=== PATIENT | female | born 1985 | race Caucasian/White ===

== ENCOUNTER 2022-07-06 06:00 | Inpatient (IN) | payer BC ==
[2022-07-06] MEDS ORDERED: hydrALAZINE 20 MG/ML VIAL SLOW IVP PRN ×2 (07:58→16:49)
[2022-07-06] MEDS ORDERED: Ondansetron PF 4 MG/2 ML Vial IVP PRN ×3 (07:58→16:49)
[2022-07-06] MEDS ORDERED: Lactated Ringer's 1,000 ML IV SCH (07:58)
[2022-07-06] MEDS ORDERED: Fentanyl 100 MCG/2 ML VIAL SLOW IVP PRN (07:58)
[2022-07-06] MEDS ORDERED: Promethazine HCl 25 MG/ML VIAL IM PRN ×2 (07:58→12:18)
[2022-07-06] MEDS ORDERED: HYDROcodone/Acetaminophen 5/325 mg Tablet PO PRN ×4 (07:58→16:49)
[2022-07-06] MEDS ORDERED: Lidocaine 1% (PF) 30 ML VIAL SC PRN (07:58)
[2022-07-06] MEDS ORDERED: NS w/ Oxytocin 30 units 500 ML IV SCH ×3 (07:58)
[2022-07-06] MEDS ORDERED: Ibuprofen 800 MG TAB PO PRN (07:58)
[2022-07-06] MEDS ORDERED: Lidocaine 2% MPF 10 ML AMP (For Epidural Use) ONE (08:00)
[2022-07-06] MEDS ORDERED: Bupivacaine 0.25% HCL 30 ML VIAL ONE (08:00)
[2022-07-06] MEDS ORDERED: fentaNYL 50 mcg/mL 1 mL Vial SLOW IVP PRN (08:15)
[2022-07-06 08:38] LABS: Hemoglobin 10.7 g/dL (12.0-15.5); Mean Corpuscular HGB CONC 32.2 g/dL (32.0-36.0); Mean Corpuscular Volume 83.6 fl (81.6-98.3); Platelet Count 153 10x3/uL (150-450); RBC Distribution Width 17.2 % (11.5-14.5); Red Blood Cell (RBC) Count 3.97 10x6/uL (3.90-5.03); White Blood Cell (WBC) Count 7.3 10x3/uL (3.5-10.5)
[2022-07-06 09:07] VITALS: BMI 25.4
[2022-07-06 09:09] LABS: Syphilis Antibody Nonreactive (Nonreactive); Syphilis Antibody Index 0.04 S/CO (<1.00 Non-Reactive)
[2022-07-06 09:10] LABS: HBSAg Index 0.18 S/CO (0-0.99); Hep B Surf Ag - L&D Non-Reactive S/CO (NonReactive)
[2022-07-06] MEDS ORDERED: Fentanyl 2 mcg/Bup 0.1% Cadd 100 ML ONE (12:13)
[2022-07-06] MEDS ORDERED: Acetaminophen 325 MG TAB PO PRN (12:18)
[2022-07-06] MEDS ORDERED: Lactated Ringer's 500 ML IV PRN (12:18)
[2022-07-06] MEDS ORDERED: Moisturizing Cream (Eucerin) 113 GM JAR TOP PRN (12:18)
[2022-07-06] MEDS ORDERED: Naloxone HCl 0.4 mg/ml Vial IVP PRN ×2 (12:18)
[2022-07-06] MEDS ORDERED: ePHEDrine Sulfate 50 MG/10 ML VIAL SLOW IVP PRN (12:18)
[2022-07-06] MEDS ORDERED: diphenhydrAMINE 50 MG/ML VIAL IVP PRN (12:18)
[2022-07-06] MEDS ORDERED: Fentanyl 2 mcg/Bupivacaine 0.1% Cassette 100 ML EPIDURAL SCH (12:30)
[2022-07-06] MEDS ORDERED: Communication Order-Pharmacy FS SCH (12:30)
[2022-07-06] MEDS ORDERED: fentaNYL 50 mcg/mL 1 mL Vial ONE (13:20)
[2022-07-06] MEDS ORDERED: Preparation H Ointment 28 GM TUBE PR PRN (16:49)
[2022-07-06] MEDS ORDERED: Milk Of Magnesia 30 ML UDCUP PO PRN (16:49)
[2022-07-06] MEDS ORDERED: Boostrix 0.5 ML (Tdap) VIAL (>/=7 yrs of age) IM ONE (16:49)
[2022-07-06] MEDS ORDERED: Benzocaine-Menthol 82.5 ML CAN TOP PRN (16:49)
[2022-07-06] MEDS ORDERED: Lanolin Ointment 7 GM TUBE TOP PRN (16:49)
[2022-07-06] MEDS ORDERED: Bisacodyl 10 MG SUPP PR PRN (16:49)
[2022-07-06] MEDS ORDERED: diphenhydrAMINE 25 MG CAP PO PRN (16:49)
[2022-07-06] MEDS: Ferrous Sulfate 325 MG TAB PO SCH (20:18)
[2022-07-06] MEDS: Docusate 100 MG CAP PO SCH (22:04)
[2022-07-06] MEDS: Ibuprofen 800 MG TAB PO SCH (22:04)
[2022-07-07] MEDS: Ibuprofen 800 MG TAB PO SCH ×2 (01:40→09:54)
[2022-07-07 04:19] LABS: Hemoglobin 9.8 g/dL (12.0-15.5)
[2022-07-07] MEDS: Docusate 100 MG CAP PO SCH (08:02)
[2022-07-07] MEDS: Ferrous Sulfate 325 MG TAB PO SCH (08:02)
[2022-07-07] MEDS ORDERED: Prenatal Vitamin 1 TAB PO SCH (09:00)
[2022-07-07 11:38] VITALS: TEMP 98.8
[2022-07-07 15:10] VITALS: BP 105/55
== END 2022-07-07 18:05 | disposition home or self-care (01) | DRG 807 ==
LOC: CSHLD 07:19 → CSHPP 18:40
PROVIDERS: ADMIT Obstetrics & Gynecology; ATTEND Obstetrics & Gynecology
PROC: 10E0XZZ Delivery of Products of Conception, External Approach (ICD-10-PCS; principal; 2022-07-06)
PROC: 0KQM0ZZ Repair Perineum Muscle, Open Approach (ICD-10-PCS; 2022-07-06)
PROC: 3E0334Z Introduction of Serum, Toxoid and Vaccine into Peripheral Vein, Percutaneous Approach (ICD-10-PCS; 2022-07-06)
DX: O48.0 Post-term pregnancy (principal); Z37.0 Single live birth; O26.893 Other specified pregnancy related conditions, third trimester; Z67.41 Type O blood, Rh negative; Z3A.40 40 weeks gestation of pregnancy; D64.9 Anemia, unspecified; O99.02 Anemia complicating childbirth; O69.81X0 Labor and delivery complicated by cord around neck, without compression, not applicable or unspecified; O70.1 Second degree perineal laceration during delivery
CPT/HCPCS: 36415; 51702; 85014; 85018; 85027; 85461; 86780; 86850; 86900; 86901; 87340; 90384; 96372; S0020